=== PATIENT | female | born 1945 | race Caucasian/White ===

== ENCOUNTER 2021-07-14 09:25 | Observation (INO) ==
[2021-07-14] MEDS ORDERED: NS 0.9% 1000 ml BAG 1,000 ML IV ONE (09:27)
[2021-07-14 09:50] LABS: ABS Eosinophils 0.3 10^3/ul (0-0.6); ABS Monocytes 0.5 10^3/ul (0-0.8); Eosinophil % 3.5 %; Hematocrit 45 % (35-47); Hemoglobin 15.3 g/dL (12.0-16.0); Lymphocyte % 38.4 %; Mean Corpuscular HGB Conc 34 g/dL (31-36); Mean Corpuscular Hemoglobin 33 pg (27-31); Mean Corpuscular Volume 95 fL (80-97); Mean Platelet Volume 9.1 fL (7.4-10.4); Platelet Count 217 10^3/uL (150-450); Red Blood Count 4.69 10^6 /uL (3.70-4.87); Red Cell Distribution Width 13 % (10-15); White Blood Count 7.8 10^3/uL (3.5-10.8)
[2021-07-14 10:12] LABS: Albumin 4.4 g/dL (3.2-5.2); Albumin/Globulin Ratio 2.1 (1-3); Calcium 9.4 mg/dL (8.6-10.3); EGFR African American 91.8 (>60); EGFR Non-African American 75.9 (>60); Globulin 2.1 g/dL (2-4); HDL Cholesterol 65.7 mg/dL; Potassium 3.7 mmol/L (3.5-5.0); Total Bilirubin 0.8 mg/dL (0.2-1.0); Total Protein 6.5 g/dL (6.4-8.9)
[2021-07-14] MEDS ORDERED: Iohexol 350 (CONTRAST) 500 ML MDV IV ONE (10:21)
[2021-07-14 10:26] LABS: Activated Partial Thrombo Time 26.8 seconds (26.0-38.0); INR 1.04 (0.86-1.15)
[2021-07-14] MEDS ORDERED: Aspirin EC 81 mg TAB.EC (enteric coated) PO ONE (13:15)
[2021-07-14] MEDS: Enoxaparin 40 MG/0.4 ML SYR SUBCUT SCH ×2 (15:59→17:20)
[2021-07-14] MEDS: NF:Multivitamins/Mins AREDS2 (NF) CAP PO SCH (21:31)
[2021-07-15 06:00] LABS: ABS Basophils 0.1 10^3/ul (0-0.2); ABS Eosinophils 0.2 10^3/ul (0-0.6); ABS Lymphocytes 1.8 10^3/ul (1.0-4.8); ABS Monocytes 0.6 10^3/ul (0-0.8); ABS Neutrophils 4.2 10^3/ul (1.5-7.7); Eosinophil % 2.5 %; Hematocrit 40 % (35-47); Hemoglobin 13.8 g/dL (12.0-16.0); Lymphocyte % 26.9 %; Mean Corpuscular HGB Conc 34 g/dL (31-36); Mean Corpuscular Hemoglobin 32 pg (27-31); Mean Corpuscular Volume 94 fL (80-97); Mean Platelet Volume 8.4 fL (7.4-10.4); Platelet Count 258 10^3/uL (150-450); Red Blood Count 4.24 10^6 /uL (3.70-4.87); Red Cell Distribution Width 13 % (10-15); White Blood Count 6.8 10^3/uL (3.5-10.8)
[2021-07-15 06:14] LABS: Calcium 8.9 mg/dL (8.6-10.3); EGFR African American 101.3 (>60); EGFR Non-African American 83.7 (>60); Potassium 3.7 mmol/L (3.5-5.0)
[2021-07-15] MEDS ORDERED: Perflutren Lipid Microsphere 3 ML VIAL ONE (07:48)
[2021-07-15] MEDS ORDERED: Aspirin EC 81 mg TAB.EC (enteric coated) PO SCH (09:00)
[2021-07-15] MEDS ORDERED: Cholecalciferol (VIT D3) 1,000 unit TAB PO SCH (09:00)
[2021-07-15] MEDS: NF:Multivitamins/Mins AREDS2 (NF) CAP PO SCH (09:08)
[2021-07-15 11:08] VITALS: BP 155/85
[2021-07-15] MEDS: Enoxaparin 40 MG/0.4 ML SYR SUBCUT SCH (13:14)
== END 2021-07-15 16:00 | disposition home or self-care (01) ==
LOC: MEDTELE 09:25 → ED 09:25 → MEDTELE 13:50
PROVIDERS: ADMIT Internal Medicine; ATTEND Internal Medicine